=== PATIENT | female | born 1965 | race Two or more races ===

== ENCOUNTER 2018-11-02 06:35 | Day surgery (SDC) | payer OTHER | END 2018-11-02 14:14 | disposition home or self-care (01) | LOC: AMB-ENDOS 06:35 → ADM 15:00 → CIR.AMB 15:00 | DX: D12.3 Benign neoplasm of transverse colon (principal); K57.30 Diverticulosis of large intestine without perforation or abscess without bleeding; K64.0 First degree hemorrhoids ==

== ENCOUNTER 2018-11-30 18:28 | Emergency (ER) | payer OTHER ==
[~2018-11-30] VITALS: Ht 165.1 cm; Wt 97.5 kg
[2018-11-30] MEDS ORDERED: PROTONIX40 M1 (18:38)
[2018-11-30] MEDS ORDERED: FOLIC ACID1 MG (18:38)
[2018-11-30] MEDS ORDERED: COZAAR50 MG (18:38)
[2018-11-30] MEDS ORDERED: TOPROL XL25 MG (18:38)
[2018-11-30] MEDS ORDERED: HUMIRA PEN40 MG/0.2 (18:39)
[2018-11-30] MEDS ORDERED: WELLBUTRIN SR150 MG (18:39)
== END 2018-11-30 20:37 | disposition home or self-care (01) ==
LOC: ER 18:28
DX: G57.81 Other specified mononeuropathies of right lower limb (principal); M25.561 Pain in right knee; M25.571 Pain in right ankle and joints of right foot

== ENCOUNTER 2019-01-29 22:18 | Emergency (ER) | payer OTHER ==
[~2019-01-29] VITALS: Ht 165.1 cm; Wt 94.8 kg
[~2019-01-29 22:18] MED LIST: COZAAR50 MG; FOLIC ACID1 MG; HUMIRA PEN40 MG/0.2; PROTONIX40 M1; TOPROL XL25 MG; WELLBUTRIN SR150 MG
[2019-01-29] MEDS ORDERED: METROTEXATE (22:45)
[2019-01-29] MEDS ORDERED: PNEU16DI2 (22:45)
[2019-01-30] MEDS ORDERED: VOLTAREN-XR100 MG PO (06:57)
[2019-01-30] MEDS ORDERED: ORPHENADRINE C100 MG PO (06:57)
== END 2019-01-30 08:02 ==
LOC: ER 22:18
DX: M79.661 Pain in right lower leg (principal); M62.838 Other muscle spasm

== ENCOUNTER 2020-08-30 13:11 | Day surgery (SDC) | payer OTHER ==
[~2020-08-30 13:11] MED LIST changes: +METROTEXATE; +ORENCIA; +ORPHENADRINE C100 MG PO; +PNEU16DI2; +VOLTAREN-XR100 MG PO
== END 2020-08-30 20:10 | disposition home or self-care (01) ==
LOC: CIR.AMB 13:11
PROVIDERS: ATTEND Orthopaedic Surgery
DX: M75.121 Complete rotator cuff tear or rupture of right shoulder, not specified as traumatic (principal); M75.21 Bicipital tendinitis, right shoulder; Z20.822 Contact with and (suspected) exposure to COVID-19

== ENCOUNTER 2021-01-01 06:44 | Emergency (ER) | payer OTHER ==
[~2021-01-01] VITALS: Ht 165.1 cm; Wt 103.0 kg
[~2021-01-01 06:44] MED LIST changes: +CATAFLAM50 MG PO; +CIPRO500 MG PO; +DICY20TA PO; +INTESTINEX1 CAP PO; +LEVSIN0.125 MG SL; +PREVACID30 MG PO; +PROTONIX40 MG PO; +RECTICARE30 GM TP; +TOPROL XL25 M1; +TRAM1TAB PO; +TREXALL15 MG; +TYLENOL-CODEINE1 TAB PO; +ULTRACET PO
[2021-01-01] MEDS ORDERED: FLAGYL500MG PO (14:12)
[2021-01-01] MEDS ORDERED: CIPRO500 MG PO (14:12)
[2021-01-01] MEDS ORDERED: PEPCID AC20 MG PO (14:14)
[2021-01-01] MEDS ORDERED: INTESTINEX680 M2 PO (14:14)
== END 2021-01-01 17:40 | disposition home or self-care (01) ==
LOC: ER 06:44
DX: R19.7 Diarrhea, unspecified (principal); R10.32 Left lower quadrant pain; R10.31 Right lower quadrant pain

== ENCOUNTER → 2021-03-18 | Outpatient (CLI) | payer OTHER ==
[~2021-03-18] MED LIST changes: +FLAGYL500MG PO; +INTESTINEX680 M2 PO; +PEPCID AC20 MG PO
== END | disposition home or self-care (01) ==
LOC: MAMO-SONO 10:15
PROVIDERS: ATTEND Internal Medicine
DX: N60.11 Diffuse cystic mastopathy of right breast (principal); N60.12 Diffuse cystic mastopathy of left breast; Z12.31 Encounter for screening mammogram for malignant neoplasm of breast

== ENCOUNTER 2021-03-20 08:00 | Outpatient (CLI) | payer OTHER | END 2021-03-20 08:30 | disposition home or self-care (01) | LOC: PPH VACUNA 08:00 | PROVIDERS: ATTEND Emergency Medicine Pediatric Emergency Medicine | DX: Z23 Encounter for immunization (principal) ==

== ENCOUNTER 2021-04-03 13:20 | Outpatient (CLI) | payer OTHER | END 2021-04-03 13:24 | disposition home or self-care (01) | LOC: NUCLEAR 13:20 | PROVIDERS: ATTEND Internal Medicine | DX: M81.0 Age-related osteoporosis without current pathological fracture (principal) ==

== ENCOUNTER 2021-08-09 12:23 | Outpatient (CLI) | payer OTHER | END 2021-08-09 15:33 | disposition home or self-care (01) | LOC: SONOGRAMA 12:23 | PROVIDERS: ATTEND Internal Medicine | DX: E04.1 Nontoxic single thyroid nodule (principal) ==

== ENCOUNTER 2024-06-29 09:49 | Emergency (ER) | payer OTHER ==
[~2024-06-29] VITALS: Ht 165.1 cm; Wt 89.8 kg
[2024-06-29 09:57] VITALS: BP 135/85; O2SAT 100
[2024-06-29] MEDS ORDERED: KETOROLAC TROMETHAMINE 15 MG VIAL IM STA (11:32)
[2024-06-29] MEDS ORDERED: KETOROLAC TROMETHAMINE 60 MG VIAL IM ONE (13:51)
== END 2024-06-29 14:17 | disposition home or self-care (01) ==
LOC: ER 09:52
DX: S93.401A Sprain of unspecified ligament of right ankle, initial encounter (principal); W18.39XA Other fall on same level, initial encounter; Y93.89 Activity, other specified; Y92.018 Other place in single-family (private) house as the place of occurrence of the external cause; Z91.018 Allergy to other foods
CPT/HCPCS: 73600; 73620; 96372; 99283; J1885